=== PATIENT | male | born 1965 | race Asian ===

== ENCOUNTER 2021-08-28 02:19 | Emergency (ER) | payer MEDICARE, OTHER, SELFPAY ==
--- NOTE | 2021-08-28 | ECG_ITS ---
Test Reason : C/A Blood Pressure : / mmHG Vent. Rate : 101 BPM Atrial Rate : 000 BPM P-R Int : 000 ms QRS Dur : 250 ms QT Int : 486 ms P-R-T Axes : 000 172 096 degrees QTc Int : 630 ms Indeterminate rhythm Significantly wide QRS Suspect metabolic or electrolyte issues. Abnormal ECG No previous ECGs available Referred By: Generic ED Physician Electronically Signed By:Enio Zuniga
--- NOTE | 2021-08-28 02:20 | PC.NURSE ---
EMS arriving to room 5 with pt, compressions ongoing.
[2021-08-28 02:49] LABS: INTERNATIONAL NORM RATIO 1.2 (0.9-1.1); Prothrombin Time 13.1 SEC (9.9-13.0)
--- NOTE | 2021-08-28 02:53 | ED.CPR ---
HPI - CPR General Chief Complaint: Cardiac Arrest/CPR Stated Complaint: CARDIAC ARREST WIT BY [facility] Time Seen by Provider: 08/28/21 02:37 Source: family () and EMS Mode of arrival: EMS History of Present Illness HPI narrative: 56-year-old male with history of multiple myeloma as well as ESRD brought in by EMS with ongoing CPR (Jimbo) after a ?witnessed cardiac arrest?. As per the patient had been complaining that he did not feel well earlier in the day while doing his home dialysis and said that he if he stops breathing to call 911. As per the he woke up and screamed and then collapsed. EMS on arrival noted that patient was in PE a and reports that he received 4 rounds of epi and they thought he may have regained ROSC EN route but then they lost the pulse again. Related Data Allergies Allergy/AdvReac Type Severity Reaction Status Date / Time calcium oxilate Allergy Unknown Uncoded 07/27/13 00:00 kiwi Allergy Unknown Uncoded 07/27/13 00:00 Review of Systems Review of Systems: Yes unobtainable due to endotracheal tube, Unobtainable due to mental condition and Unobtainable due to mental status PMFSH Past Medical History Source: nursing notes reviewed Social History Social History Advance Directives: No Physical Exam Vital Signs: Vital Signs: Cirilo tube in place with easy ventilatory support. Jimbo in place with good compressions as determine by capnography. ACLS pursued. Course Course Course Narrative: Please refer to detailed ACLS, CPR code sheet. In summary, multiple rounds of epi given to include bicarb, calcium chloride, amiodarone without sustainable ROSC obtained. A brief period of ROSC noted with blood pressure, rhythm wide complex. Pulse lost and CPR resumed. TOD: 0249. was at bedside for majority the ACLS proceedings, and informed the poor prognosis and agreed with halting CPR. ME was notified at 2863 and decline the case: . MDM - Cardiac Arrest/CPR Lab Data Result diagrams: 08/28/21 02:33 08/28/21 02:32 Labs: Lab Results 08/28/21 08/28/21 08/28/21 Range/Units 02:24 02:32 02:32 WBC RBC Hgb Hct MCV MCH MCHC RDW Plt Count MPV Immature Gran % (Auto) Neut % (Auto) Lymph % (Auto) [place] % (Auto) Eos % (Auto) Baso % (Auto) Lymph # (Auto) [place] # (Auto) Eos # (Auto) Baso # (Auto) Abs Immat Gran (auto) Absolute Neuts (auto) Absolute Nucleated RBC Nucleated RBC % (auto) PT (9.9-13.0) SEC INR (0.9-1.1) Sodium Cancelled Potassium Cancelled Chloride Cancelled Carbon Dioxide Cancelled Anion Gap Cancelled BUN Cancelled Creatinine Cancelled Estim Creat Clear Calc Cancelled Estimated GFR Cancelled POC Glucose 147 H (60-115) mg/dL Random Glucose Cancelled Lactic Acid 12.3 H* (0.5-2.0) mmol/L Calcium Cancelled Total Bilirubin Cancelled AST Cancelled ALT Cancelled Alkaline Phosphatase Cancelled Total Protein Cancelled Albumin Cancelled 08/28/21 08/28/21 Range/Units 02:33 02:33 WBC Cancelled RBC Cancelled Hgb Cancelled Hct Cancelled MCV Cancelled MCH Cancelled MCHC Cancelled RDW Cancelled Plt Count Cancelled MPV Cancelled Immature Gran % (Auto) Cancelled Neut % (Auto) Cancelled Lymph % (Auto) Cancelled [place] % (Auto) Cancelled Eos % (Auto) Cancelled Baso % (Auto) Cancelled Lymph # (Auto) Cancelled [place] # (Auto) Cancelled Eos # (Auto) Cancelled Baso # (Auto) Cancelled Abs Immat Gran (auto) Cancelled Absolute Neuts (auto) Cancelled Absolute Nucleated RBC Cancelled Nucleated RBC % (auto) Cancelled PT 13.1 H (9.9-13.0) SEC INR 1.2 H (0.9-1.1) Sodium Potassium Chloride Carbon Dioxide Anion Gap BUN Creatinine Estim Creat Clear Calc Estimated GFR POC Glucose (60-115) mg/dL Random Glucose Lactic Acid (0.5-2.0) mmol/L Calcium Total Bilirubin AST ALT Alkaline Phosphatase Total Protein Albumin ECG Data Attestation: I personally reviewed and interpreted this ECG as follows: Prior ECG tracings: not available for review Interpretation: Wide complex tachycardia, HR-101 Critical Care Time Critical Care Time Critical Care Time: Yes Total Critical Care Time: 30 Attestation: I personally attest to this time spent taking care of the patient. Discharge Plan Discharge Clinical Impression: Cardiac arrest Patient Disposition: Date/Time: 08/28/21 02:49
[2021-08-28 03:08] LABS: Glucose, Whole Blood 147 mg/dL (60-115)
--- NOTE | 2021-08-28 03:08 | PC.NURSE ---
TOD 0249. See paper documentation. Jan YAO notifying organ bank @ [phone].
[2021-08-28 03:25] LABS: Lactic Acid 12.3 mmol/L (0.5-2.0)
--- NOTE | 2021-08-28 03:40 | PC.NURSE ---
@ [phone] DR CHOUDHARY REQUESTS CALL OUT TO [facility] [employer] NICOLE PICKS UP @ [phone] AND STATES SHE WILL NEED TO CALL US BACK AND TAKES OUR BACK LINE TO CALL US BACK
--- NOTE | 2021-08-28 03:41 | PC.NURSE ---
This RN contacted [facility] within the hour prior to . [facility] did accept the pt as a potential donor. [facility] stated they would call back in one hour to confirm donor status.
--- NOTE | 2021-08-28 04:11 | PC.NURSE ---
@ [phone] NICOLE FROM [employer] [employer] CALLS US BACK, TAKES PT DEMOGRAPHICS AND ASKS TO SPEAK WITH DR FUNMI CHOUDHARY TAKES OVER CALL RIGHT AWAY
--- NOTE | 2021-08-28 04:51 | PC.NURSE ---
This RN informed that medical physics researcher declined the case for the .
--- NOTE | 2021-08-28 06:22 | PC.NURSE ---
Pt's (Jeanna) contact number [phone].
== END 2021-08-28 06:15 | disposition expired ==
LOC: HO.ED 03:13
PROVIDERS: Emergency Provider Student in an Organized Health Care Education/Training Program
DX: I46.9 Cardiac arrest, cause unspecified (principal); N18.6 End stage renal disease; Z99.2 Dependence on renal dialysis
CPT/HCPCS: 82947; 83605; 85610; 93005; 96372; 99283; 99285; J0171; J0282